=== PATIENT | female | born 1955 | race Caucasian/White ===

== ENCOUNTER 2018-12-18 11:36 | Observation (INO) | payer BC, OTHER ==
[2018-12-18 12:03] LABS: ADD MAN DIFF? NO
[2018-12-18] MEDS: KETOROLAC 15 MG INJ IV (12:11)
[2018-12-18 12:13] LABS: BASOPHILS % 0.5 % (0.0-2.0); EOSINOPHILS % 0.1 % (0.0-7.0); HEMATOCRIT 40.2 % (37.0-47.0); HEMOGLOBIN 13.6 g/dl (12.0-16.0); LYMPHOCYTES # 2.1 10^3/ul (0.8-2.9); MEAN CORPUSCULAR HEMOGLOBIN 31.9 pg (29.0-33.0); MEAN CORPUSCULAR HGB CONC 33.8 g/dl (32.0-37.0); MEAN CORPUSCULAR VOLUME 94.1 fl (82.0-101.0); MEAN PLATELET VOLUME 9.5 fl (7.4-10.4); MONOCYTE # 0.4 10^3/ul (0.3-0.9); MONOCYTES % 5.4 % (0.0-11.0); NEUTROPHILS % 65.7 % (39.0-77.0); PLATELET COUNT 288 10^3/UL (140-415); RED BLOOD COUNT 4.27 10^6/ul (4.20-5.40); RED CELL DISTRIBUTION WIDTH 11.9 % (11.5-14.5)
[2018-12-18 12:13] LABS: WHITE BLOOD COUNT 7.6 10^3/ul (4.8-10.8)
[2018-12-18 12:23] LABS: ALANINE AMINOTRANSFERASE 22 IU/L (13-69); ALBUMIN 4.4 g/dl (3.3-4.9); ALBUMIN/GLOBULIN RATIO 1.25; ALKALINE PHOSPHATASE 38 IU/L (42-121); ANION GAP 12 (5-13); ASPARTATE AMINO TRANSFERASE 28 IU/L (15-46); BILIRUBIN,INDIRECT 0.6 mg/dl (0-1.1); BILIRUBIN,TOTAL 0.6 mg/dl (0.2-1.3); BLOOD UREA NITROGEN 16 mg/dl (7-20); CALCIUM 9.4 mg/dl (8.4-10.2); CARBON DIOXIDE 21 mmol/L (21-31); CHLORIDE 107 mmol/L (97-110); CREATININE 0.68 mg/dl (0.44-1.00); Estimated GFR > 60 mL/min (>60); GLUCOSE 112 mg/dl (70-220); LIPASE 144 U/L (23-300); POTASSIUM 3.9 mmol/L (3.5-5.1); SODIUM 140 mmol/L (135-144); TOTAL PROTEIN 7.9 g/dl (6.1-8.1)
[2018-12-18 12:31] LABS: B-TYPE NATRIURETIC PEPTIDE 73 PG/ML (0-125)
[2018-12-18 12:36] LABS: TROPONIN-I < 0.012 ng/ml (0.000-0.120)
[2018-12-18 18:49] LABS: TROPONIN-I < 0.012 ng/ml (0.000-0.120)
[2018-12-18] MEDS ORDERED: NITROGLYCERIN (SL) 0.4 MG TAB SL (21:00)
[2018-12-18] MEDS ORDERED: DIPHENHYDRAMINE 25 MG CAP PO (21:00)
[2018-12-18] MEDS ORDERED: ALPRAZOLAM 0.25 MG TAB PO (21:30)
[2018-12-18] MEDS: DEXTROSE 5%-0.9% NACL 1,000 ML IV ×2 (21:44→22:45)
[2018-12-18] MEDS: CYANOCOBALAMIN 1000 MCG INJ IM (22:21)
[2018-12-18] MEDS: TIOTROPIUM 18 MCG CAPSULE INHA DEV INH (22:22)
[2018-12-18 23:51] LABS: TROPONIN-I < 0.012 ng/ml (0.000-0.120)
[2018-12-19] MEDS: PANTOPRAZOLE (EC) 40 MG TAB PO ×2 (05:09→17:56)
[2018-12-19 05:13] LABS: ADD MAN DIFF? NO
[2018-12-19 05:27] LABS: WHITE BLOOD COUNT 5.4 10^3/ul (4.8-10.8)
[2018-12-19 05:27] LABS: BASOPHILS % 0.6 % (0.0-2.0); EOSINOPHILS # 0.1 10^3/ul (0.0-0.5); EOSINOPHILS % 0.9 % (0.0-7.0); HEMATOCRIT 36.6 % (37.0-47.0); HEMOGLOBIN 12.2 g/dl (12.0-16.0); LYMPHOCYTES # 1.6 10^3/ul (0.8-2.9); LYMPHOCYTES % 30.4 % (15.0-51.0); MEAN CORPUSCULAR HEMOGLOBIN 32.1 pg (29.0-33.0); MEAN CORPUSCULAR HGB CONC 33.3 g/dl (32.0-37.0); MEAN CORPUSCULAR VOLUME 96.3 fl (82.0-101.0); MEAN PLATELET VOLUME 9.5 fl (7.4-10.4); MONOCYTE # 0.4 10^3/ul (0.3-0.9); MONOCYTES % 6.7 % (0.0-11.0); NEUTROPHIL # 3.3 10^3/ul (1.6-7.5); NEUTROPHILS % 61.2 % (39.0-77.0); PLATELET COUNT 252 10^3/UL (140-415); RED CELL DISTRIBUTION WIDTH 11.9 % (11.5-14.5)
[2018-12-19 05:58] LABS: ANION GAP 4 (5-13); B-TYPE NATRIURETIC PEPTIDE 111 PG/ML (0-125); BLOOD UREA NITROGEN 14 mg/dl (7-20); CALCIUM 7.7 mg/dl (8.4-10.2); CARBON DIOXIDE 25 mmol/L (21-31); CHLORIDE 113 mmol/L (97-110); CREATINE KINASE 58 IU/L (23-200); CREATININE 0.61 mg/dl (0.44-1.00); Estimated GFR > 60 mL/min (>60); GLUCOSE 92 mg/dl (70-220); POTASSIUM 3.9 mmol/L (3.5-5.1); SODIUM 142 mmol/L (135-144); TROPONIN-I < 0.012 ng/ml (0.000-0.120)
[2018-12-19 06:11] LABS: FREE T4 (FREE THYROXINE) 0.95 ng/dl (0.78-2.44)
[2018-12-19 06:12] LABS: CHOLESTEROL 162 mg/dl (100-200)
[2018-12-19] MEDS: MULTIVITAMINS/IRON (PO SYG) PO (08:36)
[2018-12-19] MEDS: ALBUTEROL HFA 8 GM INHALER INH ×2 (08:36→14:10)
[2018-12-19] MEDS: FOLIC ACID 1 MG TAB PO (08:36)
[2018-12-19] MEDS: CHOLECALCIFEROL 2,000 UNIT CAP PO (08:37)
[2018-12-19] MEDS: TIOTROPIUM 18 MCG CAPSULE INHA DEV INH (09:20)
[2018-12-19] MEDS: ASPIRIN (EC) 81 MG TAB PO (16:02)
[2018-12-21 13:42] LABS: ANA SCREEN NEGATIVE (NEGATIVE)
== END 2018-12-19 20:14 | disposition home or self-care (01) ==
LOC: E/R 11:36 → 6WM 13:00
DX: R07.89 Other chest pain (principal); E78.5 Hyperlipidemia, unspecified; F41.9 Anxiety disorder, unspecified; J45.909 Unspecified asthma, uncomplicated
CPT/HCPCS: 36415; 71045; 80048; 80053; 82465; 82550; 82553; 83690; 83735; 83880; 84439; 84443; 84484; 85025; 86038; 93005; 93306; 93931; 96374; 99285-25; G0378